=== PATIENT | male | born 1980 | race Caucasian/White ===

== ENCOUNTER 2024-11-28 01:37 | Day surgery (SDC) | payer OTHER, SELFPAY ==
[2024-11-18 15:57] VITALS: BMI 46.4
[2024-11-28 09:00] VITALS: BP 145/92; PULSE 69; RESP 16; TEMP 36.2; O2SAT 98
[2024-11-28 09:11] LABS: Glucose Point of Care 113 mg/dl (65-105)
[2024-11-28] MEDS: LACTATED RINGERS 1,000 ML 150 ML IV CONT (09:13)
--- NOTE | 2024-11-28 09:33 | P.PNAN_ITS ---
Anes - Initial Pre Proc Eval Procedure: Operation Date: 11/28/24 10:00 Proposed Procedures p Screening Colonoscopy - Prabhjot Calixto DO Date/Time: 11/28/24 09:33 Surgeon: Prabhjot Calixto DO Pre Op Diagnosis: Prior history of colon polyps & family hx colon cx Patient Data Age: 44 Gender: M Height: 1.91 m Weight: 157.9 kg Last Vital Signs Temp 36.2 C L 11/28/24 09:00 Pulse 69 11/28/24 09:00 Resp 16 11/28/24 09:00 BP 145/92 H 11/28/24 09:00 Pulse Ox 98 11/28/24 09:00 O2 Del Method Room Air 11/28/24 09:00 Allergies Allergy/AdvReac Type Severity Reaction Status Date / Time penicillin G Allergy Unknown Unknown Verified 11/28/24 08:59 Home Medications ?Medication ?Instructions ?Recorded ?Confirmed ?Type aspirin 81 mg tablet,delayed 81 mg PO DAILY 11/18/24 11/28/24 History release (Adult Low Dose Aspirin) atorvastatin 10 mg tablet (Lipitor) 10 mg PO HS 11/18/24 11/28/24 History hydrochlorothiazide 25 mg tablet 25 mg PO DAILY 11/18/24 11/28/24 History lisinopril 20 mg tablet 20 mg PO QPM 11/18/24 11/28/24 History metformin 500 mg tablet 500 mg PO DAILY 11/18/24 11/28/24 History Laboratory Tests 11/28/24 09:09 POC Capillary Glucose 113 H mg/dl (65-105) Patient hx anesthesia problems: none Family hx anesthesia problems: none Results Review: All pre-operative results and documents have been reviewed as part of the pre- operative evaluation. [facility] Past Medical History Medical History (Updated 11/28/24 @ 09:34 by Scott Mendez MD) Diabetes Morbid obesity HTN (hypertension) Social History Social History Living arrangements: incarcerated Anes - Eval Final PreProcedure Day of Procedure 11/28/24 09:33 Patient weight: morbidly obese Heart: regular rate and rhythm Lungs: clear to auscultation Airway: Mallampati scale class II Neurological: alert and oriented Last oral intake: >/= 8 hours ASA classification: III Emergent: no Anesthetic plan: proceed Anesthesia type and monitoring: general GIVS and standard monitoring Results Review: All pre-operative results and documents have been reviewed as part of the pre- operative evaluation. Informed Consent: The patient's anesthetic plan and its attendant risks and benefits were discussed with the patient/family/POA. Questions were solicited and answers provided to the satisfaction of the patient/family/POA.
--- NOTE | 2024-11-28 10:11 | P.HP_ITS ---
H&P: HPI History of Present Illness Date/Time: 11/28/24 10:11 Chief Complaint: history of colon polyps, family history of colon cancer Narrative: this is a 44-year-old residential inmate that presents for colonoscopy. He last had a colonoscopy 4 years ago and he says 15 polyps were removed. He is having some hematochezia. He denies any abdominal pain. Does have a family history of colon cancer in his father. Review of Systems Review of Systems: All systems reviewed & are unremarkable except as noted in HPI and below Constitutional: Constitutional: Denies chills, Denies fever(s), Denies headache(s) and Denies weight loss Eyes: Eyes: Denies change in vision ENT: Denies dizziness, Denies headache(s), Denies neck mass and Denies throat swelling Cardiovascular: Cardiovascular: Denies chest pain, Denies lightheadedness and Denies dyspnea Respiratory: Respiratory: Denies cough, Denies dyspnea and Denies wheezing Gastrointestinal: Gastrointestinal: Denies abdominal pain, Denies change in bowel habits, Denies nausea and Denies vomiting Genitourinary: Genitourinary: Denies hematuria and Denies dysuria Musculoskeletal: Musculoskeletal: Reports as per HPI Integumentary/Breasts: Skin/Breast: Reports as per HPI Neurologic: Denies dizziness and Denies headache(s) Allergic/Immunologic: Allergic/Immunologic: Denies throat swelling and Denies wheezing [facility] Past Medical History Medical History (Updated 11/28/24 @ 10:12 by Prabhjot Calixto DO) Diabetes Morbid obesity HTN (hypertension) Social History Social History Living arrangements: incarcerated Meds Home Medications and Allergies Home Medications ?Medication ?Instructions ?Recorded ?Confirmed ?Type aspirin 81 mg tablet,delayed 81 mg PO DAILY 11/18/24 11/28/24 History release (Adult Low Dose Aspirin) atorvastatin 10 mg tablet (Lipitor) 10 mg PO HS 11/18/24 11/28/24 History hydrochlorothiazide 25 mg tablet 25 mg PO DAILY 11/18/24 11/28/24 History lisinopril 20 mg tablet 20 mg PO QPM 11/18/24 11/28/24 History metformin 500 mg tablet 500 mg PO DAILY 11/18/24 11/28/24 History Allergies Allergy/AdvReac Type Severity Reaction Status Date / Time penicillin G Allergy Unknown Unknown Verified 11/28/24 08:59 Vital Signs Vital Signs - 24 hr 11/28/24 09:00 Temperature 97.1 F L Pulse Rate 69 Respiratory Rate 16 Blood Pressure 145/92 H Pulse Oximetry 98 Oxygen Delivery Room Air Exam Const: General: no acute distress and alert Orientation/consciousness: patient oriented x3 HENMT: Head: normocephalic and atraumatic Ears: hearing grossly normal bilaterally Face/Nose/Sinus: Normal nares present Mouth: Yes Normal oral and palatal mucosa present Eyes: Periorbital: periorbital findings normal Sclera: sclerae normal EOM: EOMs intact bilaterally Neck: Neck: normal visual inspection, no lymphadenopathy and trachea midline Chest: Chest palpation & inspection: normal inspection of the chest Resp: Effort & Inspection: normal respiratory effort Auscultation: clear to auscultation bilaterally Cardio: Jugular venous distension: no JVD Rate: regular rate Rhythm: regular rhythm Heart sounds: S1 normal heart sound present and S2 normal heart sound present Peripheral pulses: Peripheral pulses 2+ throughout GI: Inspection: normal to inspection GI Palp: Yes Soft to palpation, No Tenderness to palpation present (GI), No Guarding due to palpation present (GI) and No Rebound tenderness present Percussion: Yes normal to percussion Auscultation: normal bowel sounds : General: Yes no CVA tenderness Back/Spine/Pelvis: Back: no CVA tenderness Neuro: General: patient oriented x3, no focal motor deficits and CN's II-XI intact bilaterally Cognition (Neuro): normal cognition Speech: normal speech Motor exam (neuro): 5/5 motor strength present throughout Extrem: General: capillary refill normal and no clubbing, cyanosis or edema Assessment and Plan Assessment and plan (1) Hx of colonic polyps: Code(s): Z86.0100 - Personal history of colon polyps, unspecified Status: Acute Assessment and Plan: I have recommended colonoscopy. I have discussed the procedure, risks, benefits, and alternatives. Questions were answered. Patient is agreeable to proceed. (2) Family hx of colon cancer: Code(s): Z80.0 - Family history of malignant neoplasm of digestive organs Status: Acute
[2024-11-28 10:42] VITALS: BP 112/67; PULSE 60; RESP 16; O2SAT 100
[2024-11-28 10:52] VITALS: BP 116/67; PULSE 57; RESP 16; O2SAT 100
[2024-11-28 11:02] VITALS: BP 110/64; PULSE 61; RESP 16; O2SAT 98
== END 2024-11-28 11:15 | disposition home or self-care (01) ==
PROVIDERS: Visit Provider Surgery
PROC: 0DJD8ZZ Inspection of Lower Intestinal Tract, Via Natural or Artificial Opening Endoscopic (ICD-10-PCS; CPT 45378; principal; 2024-11-28 10:00)
DX: Z12.11 Encounter for screening for malignant neoplasm of colon (principal); K57.30 Diverticulosis of large intestine without perforation or abscess without bleeding; Z86.0100 Personal history of colon polyps, unspecified; Z80.0 Family history of malignant neoplasm of digestive organs; E11.9 Type 2 diabetes mellitus without complications; E66.01 Morbid (severe) obesity due to excess calories; Z68.41 Body mass index [BMI] 40.0-44.9, adult
CPT/HCPCS: 45378; 82948; J2003; J2704; J7120